=== PATIENT | female | born 1985 | race Caucasian/White ===

== ENCOUNTER 2017-03-19 23:32 | Emergency (ER) | payer OTHER ==
[~2017-03-19] VITALS: Ht 161.3 cm; Wt 90.7 kg
--- NOTE | 2017-03-19 23:50 | ED UPPER/LOWER EXTREMITY COMPL ---
History of Present Illness General Chief Complaint: Foot or Ankle Injury Stated Complaint: RT ANKLE INJURY,OPERATION ON ANKLE IN JUNE PER Source: patient Exam Limitations: no limitations Vital Signs & Intake/Output Vital Signs & Intake/Output . Allergies Coded Allergies: bee pollen (UNKNOWN 03/19/17) latex (UNKNOWN 03/19/17) Reconcile Medications Albuterol Sulfate (Proair Hfa) 90 MCG HFA.AER.AD 2 PUF INH Q4-6 PRN PRN ASTHMA (Reported) Triage Nurses Notes Reviewed? yes Onset: Abrupt Duration: hour(s): Timing: recent history Severity: mild Pain/Injury Location: Right: Ankle. Method of Injury: everted right ankle Modifying Factors: Worsens With: movement. Associated Symptoms: right ankle sprain HPI: 31 yo woman presents with right ankle pain. "This afternoon I was walking on grass and my foot slipped." She notes that her right ankle everted slightly She notes continued discomfort and mild swelling. She is able to ambulate without problem. She notes the sensation of "a pulling... like a rubber band was stretching." Past History Travel History Traveled to [place] past 21 day No Medical History Any Pertinent Medical History? see below for history Surgical History Surgical History: right ankle surgery Family History Hx Contributory? No Review of Systems Review of Systems Constitutional: Reports: no symptoms. EENTM: Reports: no symptoms. Respiratory: Reports: no symptoms. Cardiovascular: Reports: no symptoms. Gastrointestinal/Abdominal: Reports: no symptoms. Genitourinary: Reports: no symptoms. Musculoskeletal: Reports: no symptoms. Skin: Reports: no symptoms. Neurological/Psychological: Reports: no symptoms. Hematologic/Endocrine: Reports: no symptoms. Immunological: Reports: no symptoms. All Other Systems: Reviewed and Negative Physical Exam Physical Exam General Appearance: well developed/nourished, mild distress Head: atraumatic Eyes: Bilateral: normal appearance. Ears, Nose, Throat: normal ENT inspection Neck: normal inspection, supple Cardiovascular/Respiratory: regular rate/rhythm Back: normal inspection Foot Right: negative yurok criteria.... minimal discomfort with eversion of left foot at medial calcaneous. No tenderness at lateral or medial malleolus. Skin: intact, normal color, warm/dry Lymphatic: no anterior cervical natan Progress Differential Diagnosis: contusion, sprain, tendon injury Plan of Care: Current Medications Sig/Ijeoma Start time Last Medication Dose Stop Time Status Admin Ibuprofen 800 MG ONCE ONE 03/19 2345 UNVr (Motrin) 03/19 2346 Departure Departure Disposition: HOME OR SELF CARE Condition: Stable Clinical Impression Primary Impression: Ankle sprain Referrals: PATIENT HAS NO PRIMARY CARE DR (PCP/Family) Departure Forms: Customer Survey General Discharge Information Comments negative yurok criteria... pt safe for discharge... brandon wrap by nursing team. ibuprofen given w/ rx sent to [facility].
[2017-03-19] MEDS ORDERED: PROAIR HFA8.5 GM INH (23:53)
[2017-03-19] MEDS ORDERED: IBUPROFEN800 M1 PO (23:58)
[2017-03-20 00:05] VITALS: BP 130/76
== END 2017-03-20 00:12 ==
LOC: ERH 23:32
DX: S93.401A Sprain of unspecified ligament of right ankle, initial encounter (principal); W01.0XXA Fall on same level from slipping, tripping and stumbling without subsequent striking against object, initial encounter; Y92.9 Unspecified place or not applicable; Y93.9 Activity, unspecified